=== PATIENT | male | born 1980 | race African-American/Black ===

== ENCOUNTER 2019-05-01 12:42 | Emergency (ER) | payer BC ==
[~2019-05-01] VITALS: Ht 175.3 cm; Wt 81.6 kg
[~2019-05-01 12:42] MED LIST: AUGMENTIN 875-1 EAC1 ORAL; LEVOFLOXACIN750 MG ORAL; PROMETHAZINE-C118 M1 ORAL
[2019-05-01 13:30] VITALS: BP 115/70
[2019-05-01] MEDS ORDERED: Omnipaue 350mg/ml 100ml vial INJ PRN (13:30)
--- NOTE | 2019-05-01 13:30 | NUR ---
ED Nurse Note: Pt walked into ED w/ c/o feeling dizzy and weak and faint for past 2 days. Pt denies numbness, pain, n&V. Pt a&ox4, pt set up on monitor. Pt ambulatory. Blood labs sent and urine sent.
[2019-05-01 13:39] LABS: EOSINOPHILS % (AUTO) 2.5 % (0.0-3.0); HEMATOCRIT 50.4 % (42.0-52.0); HEMOGLOBIN 17.3 G/DL (14.2-18.0); LYMPHOCYTES % (AUTO) 28.1 % (20.0-45.0); MEAN CORPUSCULAR VOLUME 90 FL (80-99); MONOCYTES % (AUTO) 9.9 % (1.0-10.0); NEUTROPHILS % (AUTO) 57.5 % (45.0-75.0); PLATELET COUNT 183 K/UL (150-450); RED BLOOD COUNT 5.62 M/UL (4.70-6.10); RED CELL DISTRIBUTION WIDTH 12.1 % (11.6-14.8); WHITE BLOOD COUNT 4.9 K/UL (4.8-10.8)
[2019-05-01 13:41] LABS: APPEARANCE,URINE CLEAR; BILIRUBIN, URINE NEGATIVE (NEGATIVE); GLUCOSE, URINE (UA) NEGATIVE (NEGATIVE); KETONES,URINE NEGATIVE (NEGATIVE); LEUKOCYTE ESTERASE ,URINE NEGATIVE (NEGATIVE); NITRITE,URINE NEGATIVE (NEGATIVE); PH,URINE 5 (4.5-8.0); PROTEIN,URINE NEGATIVE (NEGATIVE); UROBILINOGEN,URINE NORMAL MG/DL (0.0-1.0)
[2019-05-01 13:45] LABS: COLOR,URINE YELLOW
[2019-05-01 14:07] LABS: ALANINE AMINOTRANSFERASE 46 U/L (12-78); ALBUMIN 4.1 G/DL (3.4-5.0); ALKALINE PHOSPHATASE 71 U/L (46-116); ANION GAP 10 mmol/L (5-15); ASPARTATE AMINO TRANSFERASE 36 U/L (15-37); BILIRUBIN,TOTAL 0.8 MG/DL (0.2-1.0); BLOOD UREA NITROGEN 22 mg/dL (7-18); CALCIUM 9.1 MG/DL (8.5-10.1); CARBON DIOXIDE 29 MMOL/L (21-32); CHLORIDE 103 MMOL/L (98-107); CREATININE 1.3 MG/DL (0.55-1.30); POTASSIUM 3.5 MMOL/L (3.5-5.1); SODIUM 142 MMOL/L (136-145)
--- NOTE | 2019-05-01 15:51 | Diagnostic Imaging Report ---
ndication: Shortness of breath Technique: IV administration nonionic contrast. Spiral acquisitions obtained from the lung bases to the lung apices. Multiplanar and 3-D reconstructions were generated. Total dose length product 769 mGycm. CTDIvol(s) 71 mGy. Dose reduction achieved using automated exposure control Comparison: none Findings: No intraluminal filling defects or other findings to suggest acute pulmonary embolus are evident. Normal caliber pulmonary arteries. No evidence of right ventricular dilatation. Upper limits normal heart size. No evidence of thoracic aortic aneurysm or dissection. Normal caliber and branching anatomy of the great neck vessels. Upper abdominal visceral vessels appear unremarkable. The superior mesenteric artery is somewhat ectatic. The lungs and pleural spaces are clear. No infiltrates, effusions, masses, or nodules. No mediastinal or hilar mass or adenopathy. The included portions of the thyroid are unremarkable. No axillary or chest wall mass or adenopathy. No pericardial effusion. Unremarkable esophagus. The included upper abdominal viscera are unremarkable except for granulomatous calcifications within the spleen. 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
[2019-05-01] MEDS ORDERED: VENTOLIN HFA18 GM INH (15:57)
[2019-05-01] MEDS ORDERED: PROMETHAZI6.25 MG/1 ORAL (15:57)
[2019-05-01] MEDS ORDERED: ZITHROMAX250 MG ORAL (15:57)
--- NOTE | 2019-05-01 15:57 | Emergency Room Report ---
History of Present Illness General Chief Complaint: Dyspnea/Respdistress Source: Patient Present Illness HPI 38-year-old male with no significant past medical history here complaining of sudden onset of feeling faint and short of breath mild at the gym earlier today biking. Patient reports that he exercises every day either on bike or lifts heavy weights. Patient looks very athletic, denies any past cardiac or respiratory history. Blood pressure slightly elevated upon arrival and heart rate slightly elevated. Denies drug use, tobacco smoke, alcohol intake. Reports that he occasionally smokes marijuana however has not done so in a long time. Denies tearing sensation chest pain however complains of feeling faint when laying down and short of breath. Denies abdominal pain, nausea vomiting. Denies recent travel, surgery, cancer history, calf tenderness. Denies pleuritic chest pain at this time. Has not taken medication for symptom relief. Complains of feeling his chest being congested however denies any cough , sore throat, fever and chills. Allergies: Coded Allergies: No Known Allergies (Unverified , 05/20/13) Patient History Past Medical History: see triage record Past Surgical History: none Pertinent Family History: none Social History: Reports: drug use - marijuana Immunizations: UTD Reviewed Nursing Documentation: PMH: Agreed; PSxH: Agreed Nursing Documentation-PMH Past Medical History: No Stated History Review of Systems All Other Systems: negative except mentioned in HPI Physical Exam Vital Signs Date Time Temp Pulse Resp B/P (MAP) Pulse Ox O2 Delivery O2 Flow Rate FiO2 05/01/19 12:56 97.5 102 18 155/78 (103) 98 Room Air 05/01/19 13:30 98 Sp02 EP Interpretation: abnormal - Elevated blood pressure and heart rate General Appearance: no apparent distress, alert, GCS 15, non-toxic Head: normocephalic, atraumatic Eyes: bilateral eye normal inspection, bilateral eye PERRL ENT: hearing grossly normal, normal pharynx, no angioedema, normal voice, TMs + canals normal Neck: full range of motion, supple, thyroid normal, no meningismus, no bony tend, supple/symm/no masses Respiratory: chest non-tender, lungs clear, normal breath sounds, no rhonchi, no respiratory distress, no retraction, no accessory muscle use, no wheezing, speaking full sentences Cardiovascular #1: regular rate, rhythm, no edema, no murmur Cardiovascular #2: 2+ carotid (R), 2+ carotid (L), 2+ radial (R), 2+ radial (L) Gastrointestinal: normal bowel sounds, non tender, soft, non-distended, no guarding, no rebound Rectal: deferred Genitourinary: no CVA tenderness Musculoskeletal: back normal, no calf tenderness Neurologic: alert, motor strength/tone normal, oriented, oriented x3, sensory intact, responsive, speech normal Psychiatric: judgement/insight normal, memory normal, mood/affect normal, no suicidal/homicidal ideation Skin: no rash, normal color Lymphatic: no adenopathy Medical Decision Making PA Attestation Diagnosis and treatment plans were reviewed and discussed with my supervising physician Dr. Banks Diagnostic Impression: Primary Impression: Dehydration Additional Impressions: Atypical pneumonia Dyspnea ER Course 38-year-old male with no significant past medical history here complaining of sudden onset of feeling faint and short of breath mild at the gym earlier today biking. Patient reports that he exercises every day either on bike or lifts heavy weights. Patient looks very athletic, denies any past cardiac or respiratory history. Blood pressure slightly elevated upon arrival and heart rate slightly elevated. Denies drug use, tobacco smoke, alcohol intake. Reports that he occasionally smokes marijuana however has not done so in a long time. Denies tearing sensation chest pain however complains of feeling faint when laying down and short of breath. Denies abdominal pain, nausea vomiting. Denies recent travel, surgery, cancer history, calf tenderness. Denies pleuritic chest pain at this time. Has not taken medication for symptom relief. Complains of feeling his chest being congested however denies any cough , sore throat, fever and chills. Ddx considered but are not limited to: NV, Angina, COPD, GERD, dehydration, atypical pneumonia, unspecified chest pain, dyspnea Vital signs: are WNL, pt. is afebrile H&PE are most consistent with dehydration, atypical pneumonia, dyspnea, unspecified chest pain ORDERS: CTA, EKG, Chest XR, cardiac labs(troponin, CBC, CMP, BNP), azithromycin , Phenergan, albuterol ED INTERVENTIONS: NS bolus, DISCHARGE: At this time pt. is stable for d/c to home. Will provide printed patient care instructions, and any necessary prescriptions. Care plan and follow up instructions have been discussed with the patient prior to discharge. Patient to follow-up primary care provider for possible referral to amphibian crewmember, for medication as directed, at this time no dissection or PE noted. If worsening symptoms return to emergency room. Avoid strenuous physical activity for a few days. Increase oral hydration especially before exercising. EKG Diagnostic Results Rate: normal Rhythm: NSR ST Segments: no acute changes Other Impression No acute ST changes Chest X-Ray Diagnostic Results Chest X-Ray Diagnostic Results : Chest X-Ray Ordered: Yes # of Views/Limited/Complete: 1 View Indication: Shortness of Breath EP Interpretation: Yes RADHA Xray: Interpretation reviewed, and agrees with findings. Interpretation: no consolidation, no effusion, no pneumothorax Impression: No acute disease Electronically Signed by: Francisco Villanueva PA-C CT/MRI/US Diagnostic Results CT/MRI/US Diagnostic Results : Imaging Test Ordered: CTA chest Impression no PE, no aortic dissection Last Vital Signs Date Time Temp Pulse Resp B/P (MAP) Pulse Ox O2 Delivery O2 Flow Rate FiO2 05/01/19 13:30 98.5 68 16 115/70 98 Room Air 05/01/19 13:30 98 Disposition: HOME, SELF-CARE Condition: Stable Scripts Albuterol Sulfate (VENTOLIN HFA) 18 Gm Hfa.aer.ad 2 PUFFS INH EVERY 6 HOURS, #18 GM 0 Refills Prov: Francisco Dawkins 05/01/19 Promethazine Hcl (PROMETHAZINE HCL*) 6.25 Mg/5 Ml Syrup 5 ML ORAL Q8H, #120 ML 0 Refills Prov: Francisco Dawkins 05/01/19 Azithromycin* (ZITHROMAX*) 250 Mg Tablet 250 MG ORAL DAILY, #6 TAB 0 Refills Take two tables once daily for 1 day, then one tablet once daily for 4 days. Prov: Francisco Dawkins 05/01/19 Referrals: NON PHYSICIAN (PCP) Patient Instructions: Dehydration, Adult, Shortness of Breath, [id number], Upper Respiratory Infection, Adult Additional Instructions: Follow-up with your primary care provider for referral to amphibian crewmember or paymaster of purses if symptoms continue. Take medication as directed, your symptoms are secondary to bacterial infection of chest as well as dehydration. Avoid strenuous physical activity for a few days. Keep hydrated. If worsening symptoms return to emergency room Francisco Dakwins May 01, 2019 15:57
--- NOTE | 2019-05-01 16:04 | NUR ---
ER DISCHARGE NOTE: Patient is cleared to be discharged per ERMD, pt is aox4, on room air, with stable vital signs. pt was given dc and prescription instructions, pt was able to verbalize understanding, pt id band and iv site removed without complications. pt is able to ambulate with steady gait. pt took all belongings. Pt educated about working uot and proper health management.
[2019-05-01 16:05] VITALS: BP 119/72
--- NOTE | 2019-05-02 09:57 | Diagnostic Imaging Report ---
Indication: Shortness of breath Technique: One view of the chest Comparison: none Findings: Lungs and pleural spaces are clear. Heart size is normal. Impression: No acute process
== END 2019-05-01 16:05 | disposition home or self-care (01) ==
LOC: EMR 13:49
DX: E86.0 Dehydration (principal); J18.9 Pneumonia, unspecified organism; R06.00 Dyspnea, unspecified
CPT/HCPCS: 36415; 71045; 71275; 80053; 80307; 81003; 83880; 84484; 85025; 85610; 85730; 93005; 96360; 99284; G0480; J7030; Q9967